=== PATIENT | female | born 2000 | race Hispanic/Latino ===

== ENCOUNTER → 2022-01-05 | Day surgery (SDC) | payer SELFPAY ==
[~2022-01-05] MED LIST: Bupivacaine PF 0.5% 30 ML VIAL ONE; CEFAZOLIN 1 GM VIAL ONE; Dexamethasone 4 mg/ml Vial ONE; EPINEPHrine 1 MG/ML AMP ONE; Fentanyl 100 MCG/2 ML VIAL ONE; Glycopyrrolate 0.2 MG/ML 5 ML SYRINGE ONE; HYDROcodone/Acetaminophen 5/325 mg Tablet PO PRN; Ketorolac Tromethamine 30 MG/ML VIAL ONE; Lidocaine 2% PF 5 ML VIAL ONE; Meperidine HCl/PF 25 MG/ML VIAL ONE; Ondansetron PF 4 MG/2 ML Vial ONE; PROPOFOL 20 ML ONE; Rocuronium Bromide 10 MG/ML (10ML VIAL) ONE
[2022-01-05 11:57] LABS: #Monocytes 0.8 10x3/uL (0.0-1.1); #Neutrophils 11.6 10x3/uL (1.5-8.4); %Basophils 0.3 % (0.0-2.0); %Eosinophils 0.1 % (0.0-6.0); %Lymphocytes 16.5 % (18.0-47.0); %Monocytes 5.5 % (0.0-10.0); %Neutrophils 77.1 % (40.0-75.0); Hemoglobin 10.7 g/dL (12.0-15.5); Mean Corpuscular HGB CONC 32.4 g/dL (32.0-36.0); Mean Corpuscular Hemoglobin 28.3 pg (27.0-33.0); Mean Corpuscular Volume 87.3 fl (81.6-98.3); Mean Platelet Volume 9.3 fl (7.4-10.4); Platelet Count 379 10x3/uL (150-450); RBC Distribution Width 12.3 % (11.5-14.5); Red Blood Cell (RBC) Count 3.78 10x6/uL (3.90-5.03)
[2022-01-05 12:04] LABS: BHCG - Serum Negative (NEGATIVE); Pregs Control Background? CLEAR/WHITE (CLR/WHITE); Pregs Control Bar Appear? YES (CONTROL BAR)
[2022-01-05 12:07] LABS: PTT 25.1 sec (22.0-33.0); Prothrombin Time 10.8 sec (9.5-12.1)
[2022-01-05 12:10] LABS: ALT (SGPT) 15 U/L (8-55); AST (SGOT) 12 U/L (5-34); Albumin 4.3 g/dL (3.5-5.0); Alkaline Phosphatase 82 U/L (40-100); Anion Gap 13 mmol/L (10-20); BUN (Urea Nitrogen) 12 mg/dL (7.0-18.7); Bilirubin, Total 0.8 mg/dL (0.2-1.2); Calc. Creatinine Clearance 0 mL/min (70-130); Calcium 9.1 mg/dL (7.8-10.44); Carbon Dioxide 23 mmol/L (22-29); Chloride 105 mmol/L (98-107); Globulin 3.2 g/dL (2.4-3.5); Glucose 135 mg/dL (70-105); Lipase 6 U/L (8-78); Potassium 3.5 mmol/L (3.5-5.1); Protein, Total 7.5 g/dL (6.0-8.3); Sodium 137 mmol/L (136-145)
[2022-01-05 12:21] LABS: SARS-CoV-2 NAA Rapid Test Not Detected (NotDetected)
== END | disposition admitted as inpatient to this hospital (09) ==
LOC: CSHERS 11:03 → CSHSDC 12:00 → CSHERS 13:53
PROVIDERS: ATTEND Obstetrics & Gynecology
DX: N83.9 Noninflammatory disorder of ovary, fallopian tube and broad ligament, unspecified (principal); Z20.822 Contact with and (suspected) exposure to COVID-19
CPT/HCPCS: 36415; 80053; 83690; 84703; 85025; 85610; 85730; 86850; 86900; 86901; 93005; C1713; J0171; J0690; J1100; J1885; J2001; J2175; J2405; J2704; J3010; S0020; U0002